=== PATIENT | female | born 1955 | race Caucasian/White ===

== ENCOUNTER 2016-08-31 10:51 | Emergency (ER) | payer OTHER ==
[~2016-08-31] VITALS: Ht 162.6 cm; Wt 75.0 kg
[2016-08-31 10:57] VITALS: Ht 162.6 cm; Wt 75.0 kg
[2016-08-31] MEDS ORDERED: IPRATROPIUM (NEB) 0.5 MG/2.5 ML AMP HHN ONE (12:30)
[2016-08-31] MEDS ORDERED: ALBUTEROL 0.083% (NEB) 2.5 MG/3 ML AMP HHN ONE (12:30)
[2016-08-31] MEDS ORDERED: predniSONE 20 MG TAB PO ONE (12:30)
[2016-08-31] MEDS ORDERED: ALBU8.5H3 INH (13:04)
[2016-08-31] MEDS ORDERED: PRED20TA PO (13:04)
--- NOTE | 2016-08-31 13:08 | ERD ---
ER Documentation Chief Complaint Date/Time DATE: 08/31/16 TIME: 13:06 Chief Complaint ASTHMA EXACERBATION, SORE THROAT LOWER BACK PAIN STARTED THIS AM HPI 61-year-old female presents to the emergency department complaining of cough and congestion. Patient states that she has had URI symptoms for approximately 3-4 days. She began having a sore throat over the last 24 hours. This morning, she began having increasing wheezing and shortness of breath. She does have a history of asthma and this felt the same as her previous asthma exacerbations. She did not have her asthma medications available and came to the emergency department for evaluation. She reports no fevers, chills, sputum production, hemoptysis, chest pain. ROS All systems reviewed and are negative except as per history of present illness. Medications Home Meds Active Scripts Albuterol Sulfate* (Proair HFA*) 8.5 Gm Hfa.aer.ad, 2 PUFF INH Q4H Y for WHEEZING AND SOB, #1 INHALER Prov:TASNEEM EDGAR 08/31/16 Prednisone* (Prednisone*) 20 Mg Tab, 60 MG PO DAILY for 5 Days, TAB Prov:TASNEEM EDGAR 08/31/16 PMhx/Soc History of Surgery: No Anesthesia Reaction: No Hx Neurological Disorder: No Hx Respiratory Disorders: Yes (ASTHMA) Hx Cardiac Disorders: No Hx Psychiatric Problems: No Hx Miscellaneous Medical Probl: No Hx Alcohol Use: No Hx Substance Use: No Hx Tobacco Use: No Smoking Status: Current every day smoker FmHx Noncontributory for chief complaint Physical Exam Vitals Vital Signs Date Time Temp Pulse Resp B/P Pulse Ox O2 Delivery O2 Flow Rate FiO2 08/31/16 12:21 78 20 96 21 08/31/16 10:57 99.1 100 18 115/70 93 Physical Exam GENERAL: The patient is well developed and appropriate for usual state of health in no apparent distress HEENT: Pupils equal, round, and reactive to light. EOMI. There is no scleral icterus. NECK: C-spine is soft and supple, there is no meningismus. There is no cervical lymphadenopathy. LUNGS: Wheezing is noted bilaterally with decreased tidal volume. No retractions or consolidative changes. HEART: Regular rate and rhythm, no murmurs, clicks, rubs or gallops. ABDOMEN: Soft, non-tender, non-distended. There are bowel sounds in all four quadrants. No rebound or guarding. EXTREMITIES: There is no peripheral cyanosis or edema. No focal swelling or erythema. NEURO: The patient moves all four extremities with 5/5 strength. Cranial nerves II - XII are intact. Normal gait. Alert and oriented SKIN: There is no apparent rash or petechiae. HEME/LYMPHATIC: There is no evidence of excessive bruising or lymphedema. PSYCHIATRIC: The patient does not appear anxious or depressed. Results 24 hrs Current Medications Medications (Trade) Dose Ordered Sig/[place] Route PRN Reason Start Time Stop Time Status Last Admin Dose Admin Prednisone (Prednisone) 60 mg ONCE ONCE PO 08/31/16 12:30 08/31/16 12:31 DC 08/31/16 12:22 Albuterol (Proventil 0.083% (Neb)) 5 mg ONCE ONCE HHN 08/31/16 12:30 08/31/16 12:31 DC 08/31/16 12:21 Ipratropium [place] (Atrovent 0.02% (Neb)) 0.5 mg ONCE ONCE HHN 08/31/16 12:30 08/31/16 12:31 DC 08/31/16 12:21 Procedures/MDM Patient was taken to a room, seen and evaluated. Comfort measures were initiated. Breathing treatment was initiated REEVALUATION: After breathing treatment, patient's lungs were much improved. There were now clear with only slight wheezing. She had excellent tidal volume. She seemed appropriate for outpatient care. MEDICAL DECISION MAKIN-year-old female presents to the emergency department with what appears to be an acute exacerbation of asthma brought on by viral type symptoms. At this time, after bronchodilator therapy, patient shows no evidence of pneumonia, increased work of breathing, hypoxemia or other high-risk features. Patient appears to be clinically appropriate for outpatient care. Departure Diagnosis: Primary Impression: Asthma Condition: Stable Patient Instructions: Asthma, Acute (Adult) Additional Instructions: See your doctor for follow-up as discussed. Take a copy of your test results, if appropriate, to this follow-up visit. See your doctor or return here if your symptoms do not improve as expected. At any time, please return to the emergency department for any change or worsening in her symptoms. TASNEEM EDGAR Aug 31, 2016 13:08
== END 2016-08-31 14:20 | disposition home or self-care (01) ==
LOC: FTE 10:51
DX: J45.901 Unspecified asthma with (acute) exacerbation (principal); F17.210 Nicotine dependence, cigarettes, uncomplicated
CPT/HCPCS: 94664; J7512; Z7502; Z7610

== ENCOUNTER 2017-02-12 05:28 | Inpatient (IN) | payer OTHER ==
[~2017-02-12] VITALS: Ht 170.2 cm; Wt 67.0 kg
[2017-02-12] VITALS (19 sets, daily range): BP systolic 110–144; BP diastolic 59–82; PULSE 75–115; RESP 10–22; Ht 170.2 cm; Wt 67.0 kg
[~2017-02-12 05:28] MED LIST: ALBU8.5H3 INH; PRED20TA PO
[2017-02-12] MEDS ORDERED: PROPOFOL 20 ML ONE (07:40)
[2017-02-12] MEDS ORDERED: SUCCINYLCHOLINE CHLORIDE 100 MG/5 ML SYG IV ONE (07:40)
[2017-02-12] MEDS ORDERED: NEOSTIGMINE 3 MG/3 ML SYRINGE ONE (07:40)
[2017-02-12] MEDS ORDERED: LIDOCAINE 2% (SDV) 5 ML INJ ONE (07:40)
[2017-02-12] MEDS ORDERED: MEPERIDINE 100 MG INJ ONE (07:40)
[2017-02-12] MEDS ORDERED: GLYCOPYRROLATE 0.4 MG INJ ONE ×2 (07:40→08:25)
[2017-02-12] MEDS ORDERED: ROCURONIUM 50 MG INJ ONE (07:40)
--- NOTE | 2017-02-12 07:41 | HPN ---
Date/Time of Note Date/Time of Note DATE: 02/12/17 TIME: 07:39 Interval H&P Admission Note Pt. seen H&P reviewed: No system changes JARED JAMES MD Feb 12, 2017 07:40
--- NOTE | 2017-02-12 07:56 | RADRPT ---
PROCEDURE: XR Chest. CLINICAL INDICATION: Preop TECHNIQUE: A single AP view of the chest was obtained. COMPARISON: None. FINDINGS: No focal airspace opacification, pleural effusion or pneumothorax is seen. There is a 2 mm dense no dule in the right upper lobe. The cardiomediastinal silhouette is within normal limits for size. T he osseous structures are unremarkable. IMPRESSION: 1. No radiographic evidence of acute cardiopulmonary disease. 2. 2 mm right upper lobe granuloma. RPTAT: HH .Stacie Motley MD, MD Date Time Electronically viewed and signed by .Stacie Motley MD, MD on 02/12/2017 07:55 .G/
[2017-02-12] MEDS ORDERED: METOCLOPRAMIDE 10 MG INJ ONE (08:25)
[2017-02-12] MEDS ORDERED: CEFAZOLIN 1 GM INJ ONE (08:25)
[2017-02-12] MEDS ORDERED: ONDANSETRON 4 MG INJ ONE ×2 (08:25→10:28)
[2017-02-12] MEDS ORDERED: HYDROCODONE/APAP (5/325) TAB PO PRN (10:00)
[2017-02-12] MEDS ORDERED: HYDROmorphONE (0.2 MG/ML) 10ML SYG IV ONE (10:18)
--- NOTE | 2017-02-12 10:22 | OPR ---
Date/Time of Note Date/Time of Note DATE: 02/12/17 TIME: 10:18 Operative Report Preoperative Diagnosis fracture of Rt. patella Postoperative Diagnosis same Operation/Procedure Performed O.R.I.F of Rt. patella Surgeon: JARED JAMES MD Anesthesia: general Estimated Blood Loss: 10 - 50 ml's Grafts/Implants k wires $ flexible wires Complications: None JARED JAMES MD Feb 12, 2017 10:22
[2017-02-12] MEDS ORDERED: MEPERIDINE 25 MG INJ ONE (10:27)
[2017-02-12] MEDS ORDERED: ONDANSETRON 4 MG INJ IV PRN (10:30)
[2017-02-12] MEDS ORDERED: OXYCODONE/ACETAMINOPHEN (5/325) TAB PO PRN ×2 (10:30)
[2017-02-12] MEDS ORDERED: FENTAnyl 50 MCG/ML VIAL IV PRN ×3 (10:30)
[2017-02-12] MEDS ORDERED: EPHEDrine SULFATE 50 MG/5 ML SYG IV PRN (10:30)
[2017-02-12] MEDS ORDERED: MEPERIDINE 25 MG INJ IV PRN (10:30)
[2017-02-12] MEDS ORDERED: DIPHENHYDRAMINE 50 MG INJ IV PRN (10:30)
[2017-02-12] MEDS ORDERED: MIDAZOLAM 1 MG/ML 2 ML INJ IV PRN (10:30)
[2017-02-12] MEDS ORDERED: METOCLOPRAMIDE 10 MG INJ IV PRN (10:30)
[2017-02-12] MEDS ORDERED: morphine (1 MG/ML) 10ML SYRINGE IV PRN ×3 (10:30)
[2017-02-12] MEDS ORDERED: LABETALOL HCL 20MG INJ IV PRN (10:30)
[2017-02-12] MEDS ORDERED: hydrALAzine 20 MG INJ IV PRN (10:30)
[2017-02-12] MEDS ORDERED: HYDROmorphONE (0.2 MG/ML) 10ML SYG IV PRN ×2 (10:30)
[2017-02-12] MEDS: HYDROmorphONE (0.2 MG/ML) 10ML SYG IV PRN ×2 (10:33→10:47)
[2017-02-12] MEDS: SOD CHLORIDE 0.9% 1,000 ML IV SCH ×2 (10:48→19:59)
--- NOTE | 2017-02-12 12:11 | RADRPT ---
PROCEDURE: XR Knee. CLINICAL INDICATION: Postoperative evaluation TECHNIQUE: 2 images of the right knee are available for review. COMPARISON: None available FINDINGS: There is a cerclage wire and fixation screw placement across a mid patellar fracture with overlying skin reginaldo and surrounding soft tissue swelling. No fracture diastases is seen. There is a joint effusion. There is no additional fracture. IMPRESSION: ORIF of mid patellar fracture as above, in anatomic alignment. RPTAT: UU .Edmund Motley MD, MD Date Time Electronically viewed and signed by .Edmund Motley MD, on 02/12/2017 12:11 .K/
--- NOTE | 2017-02-12 12:16 | RADRPT ---
PROCEDURE: Intraoperative imaging of the right knee with fluoroscopy. CLINICAL INDICATION: Right knee fracture Intraoperative. TECHNIQUE: 7 images of the right knee were obtained in the operating room with an image intensifie r. No radiologist was in attendance. 81-second of fluoroscopy time was used. COMPARISON: No prior study is available for comparison. FINDINGS: ORIF of right knee patellar fracture in progress. IMPRESSION: 1. Satisfactory intraoperative imaging of the right knee. Please see separately dictated operative note for full evaluation. RPTAT: UU .Edmund Motley MD, MD Date Time Electronically viewed and signed by .Edmund Motley MD, on 02/12/2017 12:16 .K/
[2017-02-12] MEDS: CEFAZOLIN 1 GM/50 ML (PMX) 50 ML IVPB SCH ×2 (12:31→20:00)
[2017-02-12] MEDS: morphine 4 MG/ML VIAL IV PRN ×2 (12:31→23:30)
[2017-02-12] MEDS: ONDANSETRON 4 MG INJ IV PRN ×2 (14:38→21:06)
[2017-02-12] MEDS: HYDROCODONE/APAP (10/325) TAB PO PRN ×2 (15:55→20:02)
[2017-02-13] VITALS: BP 138/77; RESP 18
[2017-02-13] MEDS: CEFAZOLIN 1 GM/50 ML (PMX) 50 ML IVPB SCH (03:47)
[2017-02-13] MEDS: SOD CHLORIDE 0.9% 1,000 ML IV SCH ×2 (05:14→09:28)
[2017-02-13] MEDS: morphine 4 MG/ML VIAL IV PRN ×4 (07:21→20:40)
[2017-02-13] MEDS: ENOXAPARIN 40 MG/0.4 ML SYG SC SCH (08:13)
[2017-02-13 08:33] VITALS: BP 122/69; RESP 18
[2017-02-13] MEDS: ONDANSETRON 4 MG INJ IV PRN ×2 (09:28→20:40)
--- NOTE | 2017-02-13 12:27 | CONS ---
Date/Time of Note Date/Time of Note DATE: 02/13/17 TIME: 12:22 Assessment/Plan Assessment/Plan Chief Complaint/Hosp Course 1. Mechanical fall with fracture of Right patella -Postoperative management per orthopedic team. -Continue pain management, postoperative course antibiotics, IV fluids -Postoperative diet,Weightbearing and anticoagulation per orthopedic team. Plan: We will obtain a baseline labs including 12 LEAD EKG, CBC, BMP, magnesium , TSH, fasting lipid panel and A1c. Continue postoperative management per orthopedics. We will continue to monitor patient's medical condition and manage as indicated. Approximately 60 minutes was spent on this consultation. Case discussed with . Problems: Consultation Date/Type/Reason Admit Date/Time Feb 12, 2017 at 05:28 Date of Consultation: Feb 13, 2017 Type of Consultation: Hospitalist/internal medicine Reason for Consultation Medical management Referring Provider: JARED JAMES MD Hx of Present Illness This is a 61-year-old female without any past medical history, who was brought to [facility] for by orthopedic team for ORIF of right patella. Apparently, patient has been working as a sales promotion director and she had a slip and fall at work followed by right pad to left fracture which happened on January 29. She was then taken to [facility] and was sent home on brace. Patient was then evaluated by PCP and was referred to orthopedic team. Patient denied any chest pain, dizziness, headache, numbness, shortness of breath, loss of consciousness, upper or lower GI bleed episode, nausea, vomiting, abdominal pain or other constitutional symptoms. Patient is currently status post ORIF right ankle last night and we were consulted for medical management. Currently there is no labs available to review. Vital signs temperature 98.9 pulse rate 87, respiratory rate 18, blood pressure 122/69, oxygen saturation 99% on 2 L nasal cannula. Patient reports pain 3 out of 10 at this time. A 12 point review of system was assessed and is negative other than what is mentioned in the HPI. Past Medical History None Past Surgical History None Social History Patient denies history of alcohol, smoking or illicit drug use. Smoking Status: Never smoker Exam/Review of Systems Vital Signs Vitals Vital Signs Date Time Temp Pulse Resp B/P Pulse Ox O2 Delivery O2 Flow Rate FiO2 02/13/17 08:33 98.9 87 18 122/69 99 02/12/17 12:45 Nasal Cannula 02/12/17 10:14 10.0 Intake and Output 02/12/17 02/12/17 02/13/17 15:00 23:00 07:00 Intake Total 950 ml 1250 ml 1200 ml Output Total 10 ml 400 ml Balance 940 ml 1250 ml 800 ml Exam General: Well developed,adequately built, not in any acute distress . HEENT: Normocephalic, Atraumatic, No laceration or hematoma; Eyes: PEERL, Conjunctiva clear, Anicteric sclera Neck: Supple without any lymphadenopathy, nontender, no JVD, no carotid bruits, trachea midline, no thyromegaly Cardiac: S1, S2 auscultated, regular rhythm and rate, no mumurs or gallop Pulmonary: Normal respiratory effort. Chest clear to auscultation bilaterally, no adventitious breath sounds GI: Abdomen normal to inspection. Soft, non tender, non- distended, no masses, no rebound tenderness or guarding. Bowel sounds active on all four quadrants Genitourinary: Deferred Extremities: Right knee with postoperative dressing/brace on. No cyanosis, clubbing, or edema. Pulses [2+] bilaterally. Full ROM on all four extremities. No focal weakness appreciated. Neurologic: Alert to person, place, time, and situation. Affect appropriate, intact sensation. Skin: Clean,dry, and intact. No ecchymosis, no rashes, or lesions Medications Medications Current Medications Sodium Chloride (NS) 1,000 ml @ 100 mls/hr Q10H IV Last administered on 09:28; Admin Dose 100 MLS/HR; Start 02/12/17 at 09:41 Enoxaparin Sodium (Lovenox) 40 mg DAILY SC Last administered on 02/13/17 08:13 ; Admin Dose 40 MG; Start 02/13/17 at 09:00 Morphine Sulfate (morphine) 3 mg Q3H PRN IV PAIN Last administered on 12:14; Admin Dose 3 MG; Start 02/12/17 at 10:00 Acetaminophen/ Hydrocodone Bitart ([place] (5/325)) 1 tab Q3H PRN PO PAIN; Start 02/12/17 at 10:00 Acetaminophen/ Hydrocodone Bitart ([place] (10/325)) 2 tab Q4H PRN PO PAIN Last administered on 02/12/17 20:02; Admin Dose 2 TAB; Start 02/12/17 at 14:30 Ondansetron HCl (Zofran Inj) 4 mg Q6H PRN IV NAUSEA AND/OR VOMITING Last administered on 02/13/17 09:28; Admin Dose 4 MG; Start 02/12/17 at 14:30 GHAZALA CHAPA NP Feb 13, 2017 12:26 GHAZALA CHAPA NP Feb 13, 2017 12:26
[2017-02-13] MEDS: FAMOTIDINE 20 MG TAB PO SCH ×2 (15:08→20:40)
--- NOTE | 2017-02-13 19:03 | RADRPT ---
Vent Rate: 75 bpm RR Interval: 0 msec [place] Interval: 160 msec QRS Duration: 96 msec QT Interval: 388 msec QTC Interval: 433 msec P-R-T [place]: 72 - 60 - 56 degrees Normal sinus rhythm Normal ECG Electronically Signed By: Shai Duarte [id number]
[2017-02-13 21:05] VITALS: BP 117/60; RESP 20
[2017-02-14] MEDS: SOD CHLORIDE 0.9% 1,000 ML IV SCH ×3 (01:41→20:06)
[2017-02-14] MEDS: morphine 4 MG/ML VIAL IV PRN ×2 (02:56→15:57)
[2017-02-14 05:53] LABS: BASOPHILS % 0.2 % (0.0-2.0); EOSINOPHILS # 0.3 10^3/ul (0.0-0.5); EOSINOPHILS % 3.3 % (0.0-7.0); HEMATOCRIT 29.4 % (37.0-47.0); HEMOGLOBIN 9.4 g/dl (12.0-16.0); LYMPHOCYTES # 1.6 10^3/ul (0.8-2.9); LYMPHOCYTES % 18.3 % (15.0-51.0); MEAN CORPUSCULAR HEMOGLOBIN 28.1 pg (29.0-33.0); MEAN PLATELET VOLUME 9.4 fl (7.4-10.4); MONOCYTE # 0.7 10^3/ul (0.3-0.9); MONOCYTES % 8.5 % (0.0-11.0); NEUTROPHIL # 5.9 10^3/ul (1.6-7.5); NEUTROPHILS % 69.3 % (39.0-77.0); PLATELET COUNT 313 10^3/UL (140-415); RED BLOOD COUNT 3.34 10^6/ul (4.20-5.40); RED CELL DISTRIBUTION WIDTH 13.7 % (11.5-14.5); WHITE BLOOD COUNT 8.6 10^3/ul (4.8-10.8)
[2017-02-14 06:14] LABS: ALBUMIN 3.2 g/dl (3.3-4.9); ALBUMIN/GLOBULIN RATIO 1.03; BILIRUBIN,INDIRECT 0.3 mg/dl (0-1.1); BILIRUBIN,TOTAL 0.3 mg/dl (0.2-1.3); CALCIUM 8.3 mg/dl (8.4-10.2); CHOL/HDL RATIO 3.7 RATIO; CREATININE 0.59 mg/dl (0.44-1.00); IRON 19 ug/dl (35-150); MAGNESIUM 1.8 mg/dl (1.7-2.5); POTASSIUM 3.6 mmol/L (3.5-5.1); TOTAL PROTEIN 6.3 g/dl (6.1-8.1)
[2017-02-14 06:23] LABS: TOTAL IRON BINDING CAPACITY 247 ug/dl (241-421)
[2017-02-14 07:07] LABS: THYROID STIMULATING HORMONE 0.311 MIU/L (0.465-4.680)
[2017-02-14] MEDS: HYDROCODONE/APAP (10/325) TAB PO PRN (07:54)
[2017-02-14 08:00] VITALS: BP 119/76; RESP 17
[2017-02-14] MEDS: FAMOTIDINE 20 MG TAB PO SCH ×2 (08:24→20:05)
[2017-02-14] MEDS: ONDANSETRON 4 MG INJ IV PRN (08:24)
[2017-02-14] MEDS: ENOXAPARIN 40 MG/0.4 ML SYG SC SCH (08:31)
[2017-02-14] MEDS ORDERED: ONDANSETRON 4 MG INJ IV STA (10:47)
--- NOTE | 2017-02-14 16:18 | CONS ---
Date/Time of Note Date/Time of Note DATE: 02/14/17 TIME: 16:15 Consult Date/Type/Reason Admit Date/Time Feb 12, 2017 at 05:28 Initial Consult Date 02/13/17 Type of Consultation: Hospitalist/internal medicine Ordering Provider: JARED JAMES MD Subjective Patient having some nausea symptoms after getting high-dose [place]. Work with PT today. Objective Vital Signs Date Time Temp Pulse Resp B/P Pulse Ox O2 Delivery O2 Flow Rate FiO2 02/14/17 08:00 98.3 80 17 119/76 98 02/12/17 12:45 Nasal Cannula 02/12/17 10:14 10.0 Intake and Output 02/13/17 02/13/17 02/14/17 15:00 23:00 07:00 Intake Total 850 ml 840 ml 280 ml Output Total 6 ml 4 ml Balance 850 ml 834 ml 276 ml Exam General: Well developed,adequately built, not in any acute distress HEENT: Normocephalic, Atraumatic, No laceration or hematoma; Eyes: PEERL, Conjunctiva clear, Anicteric sclera Neck: Supple without any lymphadenopathy, nontender, no JVD, no carotid bruits, trachea midline, no thyromegaly Cardiac: S1, S2 auscultated, regular rhythm and rate, no murmurs or gallop Pulmonary: Normal respiratory effort. Chest clear to auscultation bilaterally, no adventitious breath sounds GI: Abdomen normal to inspection. Soft, non tender, non- distended, no masses, no rebound tenderness or guarding. Bowel sounds active on all four quadrants Extremities: Right knee with postoperative dressing/brace on. No cyanosis, clubbing, or edema. Pulses [2+] bilaterally. Full ROM on all four extremities. No focal weakness appreciated. Neurologic: Alert to person, place, time, and situation. Affect appropriate, intact sensation. Skin: Clean,dry, and intact. No ecchymosis, no rashes, or lesions Results/Medications Result Diagram: 02/14/17 0451 02/14/17 0451 Results 24 hrs Laboratory Tests Test 02/14/17 04:51 02/14/17 04:53 White Blood Count 8.6 Red Blood Count 3.34 L Hemoglobin 9.4 L Hematocrit 29.4 L Mean Corpuscular Volume 88.0 Mean Corpuscular Hemoglobin 28.1 L Mean Corpuscular Hemoglobin Concent 32.0 Red Cell Distribution Width 13.7 Platelet Count 313 Mean Platelet Volume 9.4 Neutrophils % 69.3 Lymphocytes % 18.3 Monocytes % 8.5 Eosinophils % 3.3 Basophils % 0.2 Nucleated Red Blood Cells % 0.0 Neutrophils # 5.9 Lymphocytes # 1.6 Monocytes # 0.7 Eosinophils # 0.3 Basophils # 0.0 Nucleated Red Blood Cells # 0.0 Sodium Level 141 Potassium Level 3.6 Chloride Level 100 Carbon Dioxide Level 31 Anion Gap 14 Blood Urea Nitrogen 7 Creatinine 0.59 Glucose Level 101 Calcium Level 8.3 L Magnesium Level 1.8 Iron Level 19 L Total Iron Binding Capacity 247 Percent Iron Saturation 8 L Total Bilirubin 0.3 Direct Bilirubin 0.00 Indirect Bilirubin 0.3 Aspartate Amino Transf (AST/SGOT) 18 Alanine Aminotransferase (ALT/SGPT) 24 Alkaline Phosphatase 72 Total Protein 6.3 Albumin 3.2 L Globulin 3.10 Albumin/Globulin Ratio 1.03 Triglycerides Level 51 Cholesterol Level 136 LDL Cholesterol, Calculated 90 HDL Cholesterol 36 Cholesterol/HDL Ratio 3.7 Thyroid Stimulating Hormone (TSH) 0.311 L Hemoglobin A1c 5.2 Medications Current Medications Sodium Chloride (NS) 1,000 ml @ 100 mls/hr Q10H IV Last administered on 09:28; Admin Dose 100 MLS/HR; Start 02/12/17 at 09:41 Enoxaparin Sodium (Lovenox) 40 mg DAILY SC Last administered on 02/14/17 08:31 ; Admin Dose 40 MG; Start 02/13/17 at 09:00 Acetaminophen/ Hydrocodone Bitart ([place] (5/325)) 1 tab Q3H PRN PO PAIN; Start 02/12/17 at 10:00 Acetaminophen/ Hydrocodone Bitart ([place] (10/325)) 2 tab Q4H PRN PO PAIN Last administered on 02/14/17 07:54; Admin Dose 2 TAB; Start 02/12/17 at 14:30 Ondansetron HCl (Zofran Inj) 4 mg Q6H PRN IV NAUSEA AND/OR VOMITING Last administered on 02/14/17 08:24; Admin Dose 4 MG; Start 02/12/17 at 14:30 Famotidine (Pepcid) 20 mg BID PO Last administered on 02/14/17 08:24; Admin Dose 20 MG; Start 02/13/17 at 13:00 Ferrous Sulfate (Ferrous Sulfate (Ec)) 325 mg BID PO ; Start 02/14/17 at 21:00 Docusate Sodium (Colace) 100 mg BID PO ; Start 02/14/17 at 21:00 Morphine Sulfate (morphine) 2 mg Q4H PRN IV PAIN; Start 02/14/17 at 20:00; Status UNV Assessment/Plan Chief Complaint/Hosp Course Assessment and plan:61-year-old female without any past medical history, who was brought to [facility] for by orthopedic team for ORIF of right patella. 1. Mechanical fall with fracture of Right patella, status post ORIF right patella postop day #2 -Continue postoperative management per orthopedic team. -Continue pain management, postoperative course antibiotics, IV fluids -Postoperative diet,Weightbearing and anticoagulation per orthopedic team. 2. Low iron: Found on iron panel. Hemoglobin is otherwise stable -will start iron tablets We will continue to follow along with you. Problems: ADRIAN NAYLOR Feb 14, 2017 16:18
[2017-02-14 19:30] VITALS: BP 123/67; RESP 22
[2017-02-14] MEDS: DOCUSATE SODIUM 100 MG CAP PO SCH (20:05)
[2017-02-14] MEDS: FERROUS SULFATE (EC) 325 MG TAB PO SCH (20:05)
[2017-02-14 20:08] VITALS: BP 122/75; PULSE 68; RESP 18
[2017-02-14 21:15] VITALS: BP 122/68; PULSE 72; RESP 18
[2017-02-14] MEDS: morphine 2 MG INJ IV PRN (22:07)
[2017-02-14 22:17] VITALS: BP 115/72; PULSE 88; RESP 18
[2017-02-15] MEDS: morphine 2 MG INJ IV PRN ×2 (02:42→10:27)
[2017-02-15] MEDS: SOD CHLORIDE 0.9% 1,000 ML IV SCH (06:01)
[2017-02-15 08:05] VITALS: BP 109/65; RESP 19
[2017-02-15] MEDS: FERROUS SULFATE (EC) 325 MG TAB PO SCH (08:14)
[2017-02-15] MEDS: DOCUSATE SODIUM 100 MG CAP PO SCH (08:14)
[2017-02-15] MEDS: FAMOTIDINE 20 MG TAB PO SCH (08:14)
[2017-02-15] MEDS: ENOXAPARIN 40 MG/0.4 ML SYG SC SCH (08:19)
--- NOTE | 2017-02-15 11:12 | PDOCDIS ---
Discharge Instructions CONDITION Patient Condition: Stable HOME CARE INSTRUCTIONS: Diet Instructions: RegularSpecial Diet: REGULAR ACTIVITY: Activity Restrictions: Slowly Increase Activity Rest between Activity Avoid heavy lifting Do not Drive Do not operate Machinery Do not operate Power Tool Avoid Heavy Housework Bathing Restrictions: Shower FOLLOW UP/APPOINTMENTS Follow-up Plan Please take your medications as prescribed. Please follow-up with your surgeon and primary doctor in the clinic in the next 1-2 weeks. ADRIAN NAYLOR Feb 15, 2017 11:12
[2017-02-15] MEDS ORDERED: FER325 PO (11:13)
[2017-02-15] MEDS ORDERED: DOCU-216 PO (11:13)
--- NOTE | 2017-02-15 11:21 | DS ---
Date/Time of Note Date/Time of Note DATE: 02/15/17 TIME: 11:19 Discharge Summary Admission/Discharge Info Admit Date/Time Feb 12, 2017 at 05:28 Discharge Date/Time Patient Condition: Stable Hospital Course 61-year-old female without any past medical history, who was brought to [facility] for by orthopedic team for ORIF of right patella. 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 She was then taken to [facility] and was sent home on brace. Patient was then evaluated by PCP and was referred to orthopedic team. Patient denied any chest pain, dizziness, headache, numbness, shortness of breath, loss of consciousness, upper or lower GI bleed episode, nausea, vomiting, abdominal pain or other constitutional symptoms. The patient was admitted, diagnosed with mechanical fall with fracture of Right patella, status post ORIF right patella, which was performed here. Over the course of her hospital stay she worked with physical therapy, was recommended to go home with equipment including a front wheel walker. She was able to [place] with assistance, tolerated p.o. diet, given pain control medications as well. He is also found a slightly low iron levels and started on iron tablets. After getting clearance from orthopedic surgery team should be discharged home today improved condition. She will go home with [place] every 6 hours as needed, iron tablets nightly 25 mg twice daily, and Colace 100 mg p.o. twice daily. Home Meds Active Scripts Docusate Sodium (Dok) 100 Mg Capsule, 100 MG PO BID, #60 CAP 2 Refills Prov:ADRIAN NAYLOR S. 02/15/17 Ferrous Sulfate* (Ferrous Sulfate*) 325 Mg Tabec, 325 MG PO BID, #60 TAB 2 Refills Prov:RAMADELIN,ADRIAN S. 02/15/17 Discontinued Scripts Albuterol Sulfate* (Proair HFA*) 8.5 Gm Hfa.aer.ad, 2 PUFF INH Q4H Y for WHEEZING AND SOB, #1 INHALER Prov:TASNEEM EDGAR 08/31/16 Prednisone* (Prednisone*) 20 Mg Tab, 60 MG PO DAILY for 5 Days, TAB Prov:TASNEEM EDGAR 08/31/16 Primary Care Provider Care Physician No Primary Time spent on discharge: > 30 minutes ADRIAN NAYLOR Feb 15, 2017 11:21
--- NOTE | 2017-02-16 05:18 | OPR ---
DATE OF OPERATION: 02/12/2017 PREOPERATIVE DIAGNOSIS: Comminuted and displaced fracture of the right patella 2 weeks old. POSTOPERATIVE DIAGNOSIS: Comminuted and displaced fracture of the right patella 2 weeks old. PROCEDURE PERFORMED: Open reduction and internal fixation of the comminuted fracture of the right patella. ANESTHESIA: General. SURGEON: Grover Martini MD PROCEDURE AND FINDINGS: Under general anesthesia, the patient was placed in the supine position upon the operating table. The usual prep and drape was done exposing the right knee. Tourniquet, which was placed over the proximal portion of the right thigh, was inflated up to 300 mmHg prior to the procedure. The right patella was exposed to the midline along its incision. After exposing the patella, the ongoing healing in the less than ideal position was taken down freeing up the fracture fragment, and then after inspecting the articular surface, the patella was reduced and held with the bone clamp, and then internal fixation was carried out using 2 K-wires along with the flexible wires. At the end of the internal fixation for the stabilization was carried out, a network of repair utilizing number 1 PDS sutures. The alignment of the fracture was satisfactory and the position of the fixation device was proper. After the usual hemostasis, closure of the incision was carried out using PDS for and 2-0 Vicryl for the subcutaneous tissues. Final skin closure was carried out with skin reginaldo. The usual sterile pressure dressings were applied. The patient tolerated the entire procedure very well and was sent to the recovery room in excellent condition. Dictated By: In Kaylin Martini MD /[email or web address] /Document#: [id number]
== END 2017-02-15 15:45 | disposition home or self-care (01) | DRG 517 ==
LOC: REC 05:28 → MS1 11:54
PROVIDERS: ADMIT Internal Medicine; ATTEND Orthopaedic Surgery
PROC: 0QSD04Z Reposition Right Patella with Internal Fixation Device, Open Approach (ICD-10-PCS; principal; 2017-02-12 07:30)
DX: S82.041A Displaced comminuted fracture of right patella, initial encounter for closed fracture (principal); E61.1 Iron deficiency; W01.0XXA Fall on same level from slipping, tripping and stumbling without subsequent striking against object, initial encounter; Y93.E9 Activity, other interior property and clothing maintenance; Y92.009 Unspecified place in unspecified non-institutional (private) residence as the place of occurrence of the external cause
CPT/HCPCS: 71010; 73560; 73564; 80053; 80061; 83036; 83540; 83735; 84443; 85025; 93005; 97116; 97162; 97530; C1713; C1776; J0690; J1170; J1650; J2175; J2270; J2405; J2710; J2765; J7030; J7999; L1832